=== PATIENT | female | born 1950 | race Caucasian/White ===

== ENCOUNTER 2016-11-18 12:07 | Inpatient (IN) | payer SELFPAY ==
[~2016-11-18] VITALS: Ht 157.5 cm; Wt 72.6 kg
[~2016-11-18 12:07] MED LIST: ASPI81CT27 PO; ATOR20TA40 PO; LISI10TA11 PO; METF1000 PO; METO25TA PO; OMEP20TC24 PO; VOL25 PO
[2016-11-18 12:13] VITALS: BP 150/70
--- NOTE | 2016-11-18 13:21 | NUR ---
66F BIB FAMILY C/O 07/23 "pressure" MIDSTERNAL CHEST PAIN THAT STARTED AT 0800 TODAY; PT STATED SHE WALKING AND THE CP BEGAN; PT STATES CP IS INTERMITTENT; DENIES N/V/D; SKIN IS PINK/WARM/DRY; Pupils equal and reactive to light bilaterally. No facial droop noted. No smile deficit noted. Speech normal for patient. Patient is alert and oriented to person, place, time and event. Bilateral hand plant and machinery valuer equal. Bilateral foot push equal. PT STATES SHE HAS NUMBNESS TO LEFT SIDE OF HER BODY; PATIENT SPEAKING IN COHERENT SETNENCES; LUNGS CLEAR BL; RR ARE EVEN AND UNLABORED; PT IS NS ON CM; VSS; PATIENT POSITIONED FOR COMFORT; HOB ELEVATED; BEDRAILS UP X2; BED DOWN; DAUGHTER BY BEDSIDE; MD SANTOS BY BEDSIDE EXAMINING PT; PROVIDED PT WITH WARM BLANKET; WILL CONTINUE TO MONITOR
--- NOTE | 2016-11-18 13:32 | NUR ---
PT TO CT VIA MARLYN ACCOMPANIED BY FOREST OFFICER
[2016-11-18] MEDS ORDERED: LORazepam 2 MG/ML VIAL IVP ONE (13:35)
[2016-11-18] MEDS ORDERED: NACL 0.9% 1,000 ML IV ONE (13:35)
--- NOTE | 2016-11-18 13:51 | NUR ---
pt returned from ct via gurney accompanied by resident in diagnostic radiology
[2016-11-18 14:12] LABS: BASOPHILS # (AUTO) 0.3 K/uL (0.00-0.22); EOSINOPHILS # (AUTO) 0.1 K/uL (0-0.4); HEMATOCRIT 42.8 % (36-48); HEMOGLOBIN 14.2 g/dL (12.0-16.0); MEAN CORPUSCULAR HEMOGLOBIN 31 pg (27-31); MEAN CORPUSCULAR HGB CONC 33 g/dL (33-37); MEAN CORPUSCULAR VOLUME 92 fL (80-94); MONOCYTES # (AUTO) 0.5 K/uL (0.8-1.0); NEUTROPHILS # (AUTO) 3.4 K/uL (1.8-7.7); PLATELET COUNT (AUTO) 250 K/uL (140-450); RED BLOOD CELL COUNT(AUTO) 4.66 MIL/uL (4.20-5.40); RED CELL DISTRIBUTION WIDTH 12.4 % (11.6-13.7); WHITE BLOOD COUNT (AUTO) 6.3 K/uL (4.8-10.8)
[2016-11-18 14:16] LABS: ANION GAP 11.8 (8-16); CARBON DIOXIDE 30.7 mmol/L (21-32); CREATININE 0.8 mg/dL (0.6-1.3); POTASSIUM 4.5 mmol/L (3.5-5.1)
[2016-11-18 14:24] LABS: ALBUMIN 3.5 g/dL (3.4-5.0); TOTAL BILIRUBIN 0.5 mg/dL (0.0-1.0)
[2016-11-18 14:25] LABS: PROTHROMBIN TIME 10.2 secs (10.8-13.4)
[2016-11-18] MEDS ORDERED: ASPIRIN 81 MG TAB.CHEW PO ONE (14:25)
[2016-11-18] MEDS ORDERED: MORPHINE SULFATE 2 MG/ML SYR IVP PRN (14:35)
[2016-11-18] MEDS ORDERED: ONDANSETRON 4 MG/2 ML VIAL IM/IVP PRN (14:35)
[2016-11-18] MEDS: NACL 0.9% 1,000 ML IV SCH ×2 (14:35→23:59)
[2016-11-18] MEDS ORDERED: DOCUSATE SODIUM 100 MG GELCAP PO PRN (14:35)
[2016-11-18] MEDS ORDERED: HYDROcodone/APAP 7.5/325 MG 1 TAB PO PRN (14:35)
[2016-11-18] MEDS ORDERED: ACETAMINOPHEN 325 MG TAB PO PRN (14:35)
--- NOTE | 2016-11-18 14:37 | NUR ---
Patient resting with eyes closed in [place]. Vital Signs within normal limits. Respirations even and unlabored.
[2016-11-18] MEDS ORDERED: DEXTROSE 50% 50 ML SYR IVP PRN (14:45)
--- NOTE | 2016-11-18 15:00 | NUR ---
PT DENIES ANY CP AT THIS TIME
--- NOTE | 2016-11-18 15:22 | NUR ---
Patient will be admitted to care of Elliott. Admited to Tele. Will go to room 119B. Belongings list completed. Report to Gerard DOCKERY.
[2016-11-18 15:27] LABS: FREE T4 (FREE THYROXINE) 1.13 ng/dL (0.76-1.46); MAGNESIUM 1.7 mg/dL (1.8-2.4); PHOSPHORUS 3.7 mg/dL (2.5-4.9)
--- NOTE | 2016-11-18 15:40 | NUR ---
ADMITTED FROM ER VIA GURNEY. AWAKE, ALERT, AND ORIENTED X4. SPEECH CLEAR. NO C/O PAIN. NO SOB, NOTED. SKIN INTACT. KEEP COMFORTABLE ON BED. PT. DAUGHTER -ALICIA GAVE PT. MEDICAL INFORMATION. EXPLAINED TO PT. AND PT. DAUGHTER -ALICIA ABOUT DIAGNOSIS, PLAN OF CARE, PAIN MANAGEMENT TEACHING, USE OF CALL LIGHT/BED/TV/BATHROOM. VERBALIZED UNDERSTANDING. CALL LIGHT WITHIN REACH
[2016-11-18 16:00] VITALS: BP 148/75
--- NOTE | 2016-11-18 16:00 | NUR ---
Patient's Plan of Care was discussed and reviewed with ROUTER MACHINE OPERATOR: MARISSA ONEAL
[2016-11-18] MEDS ORDERED: METOPROLOL 25 MG TAB PO SCH ×2 (16:35→17:45)
[2016-11-18] MEDS: BLOOD GLUCOSE MONITORING 1 DEV DEV FS SCH ×2 (16:43→21:51)
[2016-11-18] MEDS: INSULIN LISPRO SLIDING SCALE 100 UNITS/ML VIAL SUBQ PRN ×2 (16:46→21:52)
[2016-11-18] MEDS ORDERED: NITROGLYCERIN 0.4 MG TAB SL PRN (17:00)
[2016-11-18] MEDS ORDERED: ATORVASTATIN 20 MG TAB PO SCH (17:05)
[2016-11-18] MEDS ORDERED: MAGNESIUM OXIDE 400 MG TAB PO SCH (17:30)
[2016-11-18] MEDS ORDERED: CYCLOBENZAPRINE 10 MG TAB PO PRN (18:50)
--- NOTE | 2016-11-18 19:25 | NUR ---
BEDSIDE REPORT GIVEN TO HAKAN CHRISTINE -CHRISTIANA. IVF INFUSING WELL. IN STABLE CONDITION.
--- NOTE | 2016-11-18 19:26 | NUR ---
RECEIVED PT FROM KINDRA TOP TILE DECORATOR . PT FAROESE SPEAKER AAOX4 AMBULATES TO THE RESTROOM WITH OFFICE SERVICE COORDINATOR, DENIES ANY CHEST PAIN AT THIS TIME, ON TELEMETRY SR, IV ON RT AC INFUSING WELL RELATIVES AT BED SIDE INITIAL ASSESSMENT DONE
[2016-11-18 20:00] VITALS: BP 141/78
[2016-11-18] MEDS: LISINOPRIL 20 MG TAB PO SCH (20:38)
[2016-11-18 20:56] LABS: APPEARANCE,URINE CLEAR (CLEAR); BILIRUBIN,URINE NEGATIVE (NEGATIVE); BLOOD, URINE NEGATIVE (NEGATIVE); COLOR,URINE YELLOW (YELLOW); LEUKOCYTE ESTERASE ,URINE NEGATIVE (NEGATIVE); NITRITE, URINE NEGATIVE (NEGATIVE); UGLUCOSE 3+ (NEGATIVE)
[2016-11-18 21:03] LABS: RBC,URINE 0-5 (RARE) /HPF (0-5); WBC,URINE 0-5 (RARE) /HPF (0-5)
[2016-11-18] MEDS: metFORMIN 500 MG TAB PO SCH (21:54)
--- NOTE | 2016-11-18 22:00 | NUR ---
BLOOD SUGAR TEST 152 COVERAGE WITH 2 UNITS SUBQ HUMALOG ORDER AND HS SNACK IS GIVEN
--- NOTE | 2016-11-19 01:00 | NUR ---
PT REMAIN STABLE NOT CHEST PAIN NOTED ON TELEMETRY SR, IV ON RT AC INFUSING WELL
[2016-11-19 01:25] VITALS: BP 107/61
[2016-11-19 04:00] VITALS: BP 137/73
--- NOTE | 2016-11-19 04:00 | NUR ---
SPONGE BATHGIVEN , LINEN CHANGED NOT DISTRESS NOTED DENIES ANY PAIN
[2016-11-19 05:52] LABS: BASOPHILS # (AUTO) 0.1 K/uL (0.00-0.22); BASOPHILS % (AUTO) 2.1 % (0.0-2.0); EOSINOPHILS # (AUTO) 0.2 K/uL (0-0.4); EOSINOPHILS % (AUTO) 3.3 % (0.0-4.0); HEMATOCRIT 39.5 % (36-48); HEMOGLOBIN 13.2 g/dL (12.0-16.0); LYMPHOCYTES # (AUTO) 2.6 K/uL (2.5-16.5); LYMPHOCYTES % (AUTO) 37.5 % (20.5-51.1); MEAN CORPUSCULAR HEMOGLOBIN 31 pg (27-31); MEAN CORPUSCULAR HGB CONC 33 g/dL (33-37); MEAN CORPUSCULAR VOLUME 92 fL (80-94); MONOCYTES # (AUTO) 0.5 K/uL (0.8-1.0); MONOCYTES % (AUTO) 7.3 % (1.7-9.3); NEUTROPHILS # (AUTO) 3.5 K/uL (1.8-7.7); NEUTROPHILS % (AUTO) 49.8 % (42.2-75.2); PLATELET COUNT (AUTO) 235 K/uL (140-450); RED BLOOD CELL COUNT(AUTO) 4.28 MIL/uL (4.20-5.40); WHITE BLOOD COUNT (AUTO) 6.9 K/uL (4.8-10.8)
[2016-11-19 06:32] LABS: ANION GAP 9.5 (8-16); CARBON DIOXIDE 30.9 mmol/L (21-32); CREATININE 0.9 mg/dL (0.6-1.3); POTASSIUM 4.4 mmol/L (3.5-5.1)
[2016-11-19] MEDS: BLOOD GLUCOSE MONITORING 1 DEV DEV FS SCH ×2 (06:34→11:58)
[2016-11-19] MEDS: INSULIN LISPRO SLIDING SCALE 100 UNITS/ML VIAL SUBQ PRN ×2 (06:35→12:00)
--- NOTE | 2016-11-19 06:44 | NUR ---
BLOODSUGAR TEST 216 COVERAGE WITH4 UNITS SUBQ HUMALOG ON LEFT ARM
--- NOTE | 2016-11-19 07:20 | NUR ---
RECEIVED PATIENT REPORT AT BEDSIDE FROM EVENING NURSE. PATIENT IS AWAKE, ALERT AND ORIENTED. NO SIGNS AND SYMPTOMS OF DISTRESS NOTED. IV SITE NOTED AT RIGHT AC, IVF INFUSING WELL. BED IN LOWEST POSITION, SIDE RAILS UP AND CALL LIGHT WITHIN REACH. WILL CONTINUE TO MONITOR.
[2016-11-19 08:00] VITALS: BP 130/75
--- NOTE | 2016-11-19 08:38 | NUR ---
PATIENT HAS BEEN SCREENED AND CATEGORIZED HIGH NUTRITION RISK. PATIENT WILL BE SEEN WITHIN 1-2 DAYS OF ADMISSION. 11/19/16-11/20/[address]
[2016-11-19] MEDS: metFORMIN 500 MG TAB PO SCH (08:39)
[2016-11-19] MEDS: LISINOPRIL 20 MG TAB PO SCH (08:40)
[2016-11-19] MEDS ORDERED: METOPROLOL SUCCINATE 50 MG TABER PO SCH (09:00)
[2016-11-19] MEDS ORDERED: ASPIRIN 81 MG TAB.CHEW PO SCH (09:00)
[2016-11-19] MEDS ORDERED: METOPROLOL 25 MG TAB PO SCH (09:00)
[2016-11-19] MEDS ORDERED: ATORVASTATIN 20 MG TAB PO SCH (09:00)
[2016-11-19] MEDS ORDERED: MAG SULF 2000 MG/WATER PREMIX 50 ML IV SCH (09:30)
--- NOTE | 2016-11-19 11:55 | NUR ---
PATIENT SEEN BY PHYSICAL THERAPIST
[2016-11-19 12:00] VITALS: BP 129/72
[2016-11-19] MEDS ORDERED: CYCL10TA40 PO (12:11)
--- NOTE | 2016-11-19 13:50 | NUR ---
CALLED PATIENT'S GRANDDAUGHTER, MARTHA, AND NOTIFIED HER OF PATIENT'S DISCHARGE ORDERS.
[2016-11-19] MEDS ORDERED: GLIP10TA3 PO (14:16)
--- NOTE | 2016-11-19 14:30 | NUR ---
PATIENT IS DISCHARGED TO HOME. PATIENT'S GRANDDAUGHTER, MARTHA, WAS PRESENT. DISCHARGE INSTRUCTIONS AND PRESCRIPTIONS GIVEN AND SIGNED BY PATIENT. PATIENT VERBALIZED UNDERSTANDING. IV SITE DISCONTINUED. TELE LEADS TAKEN OFF. PATIENT LEFT WITH ALL THEIR BELONGINGS. PATIENT IS IN STABLE CONDITION.
== END 2016-11-19 14:30 | disposition home or self-care (01) | DRG 206 ==
LOC: MED 12:07 → MTU 14:35
PROVIDERS: ADMIT Family Medicine; ATTEND Family Medicine
DX: M94.0 Chondrocostal junction syndrome [Tietze] (principal); E11.65 Type 2 diabetes mellitus with hyperglycemia; I10 Essential (primary) hypertension; G90.9 Disorder of the autonomic nervous system, unspecified; E83.42 Hypomagnesemia; Z88.6 Allergy status to analgesic agent
CPT/HCPCS: 36415; 70450; 71010; 72110; 80048; 80053; 81001; 82150; 82948; 83690; 83735; 83880; 84100; 84439; 84479; 84484; 85025; 85610; 85730; 87081; 93005; 93880; 96361; 96374; 97116; 97140; 99285; J1815; J2060; J3475; J7030; Q0092

== ENCOUNTER 2018-09-19 13:40 | Emergency (ER) | payer OTHER ==
[~2018-09-19] VITALS: Ht 157.5 cm; Wt 73.5 kg
[~2018-09-19 13:40] MED LIST changes: -ASPI81CT27 PO; +ASPI81CT95 PO; +CYCL10TA14 PO; +GLIP10TA3 PO; +OMEP20TC12 PO; -OMEP20TC24 PO
[2018-09-19 13:43] VITALS: BP 129/76
--- NOTE | 2018-09-19 13:53 | NUR ---
PT AMBULATED TO ER BED 9
[2018-09-19] MEDS ORDERED: NACL 0.9% 1,000 ML IV SCH (14:02)
[2018-09-19] MEDS ORDERED: ONDANSETRON 4 MG/2 ML VIAL IVP ONE (14:05)
--- NOTE | 2018-09-19 14:21 | NUR ---
PT TO CT SCAN VIA WHEELCHAIR
--- NOTE | 2018-09-19 14:29 | NUR ---
PT RETURNED FROM CT SCAN VIA WHEELCHAIR, SITTING IN BED POSITIONED TO COMFORT.
[2018-09-19 14:33] LABS: BASOPHILS % (AUTO) 0.2 % (0.0-2.0); EOSINOPHILS % (AUTO) 0.2 % (0.0-4.0); HEMATOCRIT 45.8 % (36-48); HEMOGLOBIN 15.4 g/dL (12.0-16.0); LYMPHOCYTES # (AUTO) 0.4 K/uL (2.5-16.5); LYMPHOCYTES % (AUTO) 3.5 % (20.5-51.1); MEAN CORPUSCULAR HEMOGLOBIN 31 pg (27-31); MEAN CORPUSCULAR HGB CONC 34 g/dL (33-37); MEAN CORPUSCULAR VOLUME 91.6 fL (80-94); MONOCYTES # (AUTO) 0.4 K/uL (0.8-1.0); MONOCYTES % (AUTO) 3.5 % (1.7-9.3); NEUTROPHILS # (AUTO) 9.8 K/uL (1.8-7.7); NEUTROPHILS % (AUTO) 92.6 % (42.2-75.2); PLATELET COUNT (AUTO) 247 K/uL (140-450); RED CELL DISTRIBUTION WIDTH 13.2 % (11.6-13.7); WHITE BLOOD COUNT (AUTO) 10.6 K/uL (4.8-10.8)
[2018-09-19 14:36] LABS: ANION GAP 17.1 (8-16); CARBON DIOXIDE 25.1 mmol/L (21-32); CREATININE 1.3 mg/dL (0.6-1.3); POTASSIUM 4.2 mmol/L (3.5-5.1)
[2018-09-19 14:41] LABS: ALBUMIN 3.4 g/dL (3.4-5.0); TOTAL BILIRUBIN 0.6 mg/dL (0.0-1.0)
[2018-09-19] MEDS ORDERED: NACL 0.9% 1,000 ML IV ONE (15:35)
--- NOTE | 2018-09-19 15:43 | NUR ---
DR. CADE EVALUATING PT
[2018-09-19] MEDS ORDERED: LIDOCAINE VISCOUS 2% 20 ML UDC PO ONE (15:50)
[2018-09-19] MEDS ORDERED: FAMOTIDINE 20 MG/2 ML VIAL IVP ONE (15:50)
[2018-09-19] MEDS ORDERED: ALUMINUM HYD/MAG/SIMETHICONE 30 ML UDC PO ONE (15:50)
[2018-09-19] MEDS ORDERED: HYDROcodone/APAP 5/325 MG 1 TAB TAB PO ONE (15:50)
--- NOTE | 2018-09-19 16:00 | NUR ---
PT AMBULATED TO RESTROOM WITH ASSISTANCE FROM HER DAUGHTER
[2018-09-19 16:10] LABS: APPEARANCE,URINE CLEAR (CLEAR); BILIRUBIN,URINE NEGATIVE (NEGATIVE); BLOOD, URINE TRACE-L (NEGATIVE); COLOR,URINE YELLOW (YELLOW); LEUKOCYTE ESTERASE ,URINE NEGATIVE (NEGATIVE); NITRITE, URINE NEGATIVE (NEGATIVE); PH,URINE 5.5 (5.0-9.0); UGLUCOSE 3+ (NEGATIVE)
[2018-09-19 16:13] LABS: RBC,URINE 0-5 /HPF (0-5); WBC,URINE 0-5 /HPF (0-5)
--- NOTE | 2018-09-19 16:30 | NUR ---
DR. CADE RE-EVALUATING PT
[2018-09-19 16:44] VITALS: BP 141/60
--- NOTE | 2018-09-19 16:45 | NUR ---
Patient discharged with v/s stable. Written and verbal after care instructions given and explained. Patient alert, oriented and verbalized understanding of instructions. Ambulatory with steady gait. All questions addressed prior to discharge. ID band removed. Patient advised to follow up with PMD. Rx of PEPCID, ZOFRAN, CIPROFLOXACIN given. Patient educated on indication of medication including possible reaction and side effects. Opportunity to ask questions provided and answered.
== END 2018-09-19 16:45 | disposition home or self-care (01) ==
LOC: MED 13:40
DX: K52.9 Noninfective gastroenteritis and colitis, unspecified (principal); E87.1 Hypo-osmolality and hyponatremia; E87.8 Other disorders of electrolyte and fluid balance, not elsewhere classified; E11.9 Type 2 diabetes mellitus without complications; I10 Essential (primary) hypertension; Z98.890 Other specified postprocedural states; Z79.84 Long term (current) use of oral hypoglycemic drugs; Z79.899 Other long term (current) drug therapy; Z88.5 Allergy status to narcotic agent
CPT/HCPCS: 36415; 74176; 80053; 81001; 82948; 83690; 84484; 85025; 93005; 96361; 96374; 96375; 99284; J2405; J3490; J7030; 81002

== ENCOUNTER 2019-02-18 04:02 | Inpatient (IN) | payer OTHER ==
[2019-02-18] MEDS ORDERED: fentaNYL 0.05 MG/ML VIAL ONE (06:06)
[2019-02-18] MEDS ORDERED: PANTOPRAZOLE 40 MG INJ VIAL ONE (12:55)
[2019-02-18] MEDS ORDERED: NITROGLYCERIN 0.4 MG TAB SL ONE (12:56)
[2019-02-18] MEDS ORDERED: ENOXAPARIN 40 MG/0.4 ML SYR SUBQ ONE (12:58)
[2019-02-20 20:06] LABS: ANION GAP 13.8 (8-16); CHLORIDE 100 mmol/L (98-107); CREATININE 1.4 mg/dL (0.6-1.3); GFR ARICAN-AMERICAN 48 mL/min (>90); GLUCOSE 226 mg/dL (74-106); POTASSIUM 4.8 mmol/L (3.5-5.1); SODIUM SERUM 135 mmol/L (136-145); TOTAL BILIRUBIN 0.3 mg/dL (0.0-1.0); UREA NITROGEN, BLOOD 20 mg/dL (7-18)
[2019-02-20 20:07] LABS: ALBUMIN 3.5 g/dL (3.4-5.0); ASPARTATE AMINOTRANSFERASE 17 U/L (15-37)
[2019-02-20 20:25] LABS: HEMATOCRIT 42.4 % (36-48); HEMOGLOBIN 14.2 g/dL (12.0-16.0); MEAN CORPUSCULAR HEMOGLOBIN 31 pg (27-31); MEAN CORPUSCULAR VOLUME 91.6 fL (80-94); RED BLOOD CELL COUNT(AUTO) 4.63 MIL/uL (4.20-5.40); WHITE BLOOD COUNT (AUTO) 7.2 K/uL (4.8-10.8)
[2019-02-20 20:26] LABS: BASOPHILS # (AUTO) 0.1 K/uL (0.00-0.22); BASOPHILS % (AUTO) 0.9 % (0.0-2.0); EOSINOPHILS # (AUTO) 0.1 K/uL (0-0.4); EOSINOPHILS % (AUTO) 1.8 % (0.0-4.0); LYMPHOCYTES # (AUTO) 2.9 K/uL (2.5-16.5); LYMPHOCYTES % (AUTO) 40.9 % (20.5-51.1); MEAN CORPUSCULAR HGB CONC 33 g/dL (33-37); MONOCYTES # (AUTO) 0.5 K/uL (0.8-1.0); MONOCYTES % (AUTO) 7.4 % (1.7-9.3); NEUTROPHILS # (AUTO) 3.5 K/uL (1.8-7.7); PLATELET COUNT (AUTO) 306 K/uL (140-450); RED CELL DISTRIBUTION WIDTH 13.7 % (11.6-13.7)
== END 2019-02-18 16:00 | disposition home or self-care (01) | DRG 313 ==
LOC: MED 04:02 → MMU 05:51
PROVIDERS: ADMIT Internal Medicine Pulmonary Disease; ATTEND Internal Medicine Pulmonary Disease
DX: R07.89 Other chest pain (principal); E11.9 Type 2 diabetes mellitus without complications; I10 Essential (primary) hypertension; R09.02 Hypoxemia; R06.03 Acute respiratory distress; E78.5 Hyperlipidemia, unspecified; Z88.5 Allergy status to narcotic agent
CPT/HCPCS: 36415; 80053; 82948; 84484; 85025; 87081; 93005; 96374; 99285; C9113; J1650; J3010

== ENCOUNTER 2021-07-16 10:33 | Emergency (ER) | payer OTHER ==
[~2021-07-16] VITALS: Ht 157.5 cm; Wt 65.3 kg
[~2021-07-16 10:33] MED LIST changes: +CYCL-657 PO; -CYCL10TA14 PO; +LISI-486 PO; -LISI10TA11 PO; +METF-1061 PO; -METF1000 PO; +OMEP-278 PO; -OMEP20TC12 PO
--- NOTE | 2021-07-16 10:55 | NUR ---
Patient ambulated with steady gait to bed 5.
[2021-07-16 10:56] VITALS: BP 186/86
--- NOTE | 2021-07-16 11:19 | NUR ---
71 Y/O FEMALE C/O HEADACHE SENT FROM URGENT CARE FOR HIGH BP READING. PATIENT BP 186/86 AT TRIAGE. PATIENTS BP AT BEDSIDE IS 157/65. PATIENT IS S/P TAKING RX IN AM AT HOME AND IN CLINIC GIVEN ADDITIONAL RX NO RELIEF. DENIES FEVER OR CHILLS. DENIES NAUSEA, VOMITING OR DIARRHEA. PATIENT IS COMPLAINING OF POUNDING IN HER EARS AND HEAD BUT NO PAIN. BLOOD SUGAR 243. MEDICAL HISTORY: HTN, DM ALLERGIES: MORPHINE
--- NOTE | 2021-07-16 11:20 | NUR ---
Chart checked and completed. The patient's care was reviewed and supervised by Andria Diez RN.
[2021-07-16] MEDS ORDERED: HYDROcodone/APAP 5/325 MG 1 TAB TAB PO ONE (12:10)
[2021-07-16] MEDS ORDERED: KETOROLAC 30 MG/ML VIAL IM ONE (12:10)
--- NOTE | 2021-07-16 12:16 | NUR ---
PATIENT WAS TAKEN TO IMAGING VIA [facility]
[2021-07-16] MEDS ORDERED: NAPR-1704 PO (13:53)
[2021-07-16] MEDS ORDERED: ACET-8386 PO (13:53)
[2021-07-16 14:25] VITALS: BP 126/59
--- NOTE | 2021-07-16 14:25 | NUR ---
Patient discharged with v/s stable. Written and verbal after care instructions given. Patient alert, oriented and verbalized understanding of instructions. Ambulatory with steady gait. All questions addressed prior to discharge. ID band removed. Patient advised to follow up with PMD. Rx of NAPROXEN AND HYDROCODONE/ACETAMINOPHEN given. Opportunity to ask questions provided and answered.
--- NOTE | 2021-07-16 14:56 | NUR ---
The patient's care was reviewed and supervised by Sol Salter RN.
== END 2021-07-16 14:25 | disposition home or self-care (01) ==
LOC: MED 10:33
DX: S16.1XXA Strain of muscle, fascia and tendon at neck level, initial encounter (principal); S29.012A Strain of muscle and tendon of back wall of thorax, initial encounter; E04.1 Nontoxic single thyroid nodule; E27.8 Other specified disorders of adrenal gland; M50.33 Other cervical disc degeneration, cervicothoracic region; M25.551 Pain in right hip; E11.9 Type 2 diabetes mellitus without complications; I10 Essential (primary) hypertension; Z98.890 Other specified postprocedural states; Z79.899 Other long term (current) drug therapy; Z79.1 Long term (current) use of non-steroidal anti-inflammatories (NSAID); Z79.891 Long term (current) use of opiate analgesic; Z79.82 Long term (current) use of aspirin; Z88.5 Allergy status to narcotic agent; W01.0XXA Fall on same level from slipping, tripping and stumbling without subsequent striking against object, initial encounter; Y92.89 Other specified places as the place of occurrence of the external cause; Y93.89 Activity, other specified; Y99.8 Other external cause status
CPT/HCPCS: 72125; 72128; 82948; 96372; 99284; J1885

== ENCOUNTER 2021-07-23 12:41 | Inpatient (IN) | payer OTHER ==
[~2021-07-23] VITALS: Ht 157.5 cm; Wt 70.8 kg
[~2021-07-23 12:41] MED LIST changes: +ACET-8386 PO; -METF-1061 PO; +METF-1274 PO; +NAPR-1704 PO
[2021-07-23 12:51] VITALS: BP 120/67
--- NOTE | 2021-07-23 13:04 | NUR ---
PT W/C ASSISTED TO ER BED 12.
--- NOTE | 2021-07-23 13:08 | NUR ---
71 Y/O FEMALE BIB DAUGHTER C/O WEAKNESS X TODAY. BP 120/67, BLOOD SUGAR 411 AT THIS TIME. PT REFERRED FROM CLINIC FOR HYPERTENSIVE CRISIS 214/101, 207/95 & GOT CLONIDINE 0.2 MG AT CLINIC. DENIES FEVER/CHILLS. DENIES N/V. PMH: DM, HTN, RA ALLERGIES: MORPHINE
--- NOTE | 2021-07-23 13:09 | NUR ---
DR. KOWALSKI AT PT BEDSIDE FOR FURTHER EVALUATION.
--- NOTE | 2021-07-23 13:12 | NUR ---
IV ESTABLISHED TO RIGHT AC 18G, GOOD BLOOD RETURN, COLLECTED BLOOD. COLLECTED LINCOLN CRAMER WALKED TO LAB.
--- NOTE | 2021-07-23 13:19 | NUR ---
XRAY AT BEDSIDE
--- NOTE | 2021-07-23 13:31 | NUR ---
BLOOD AND LEIGH COLLECTED AND WALKED TO LAB.
[2021-07-23] MEDS ORDERED: ASPIRIN 81 MG TAB.CHEW PO ONE (13:40)
[2021-07-23] MEDS ORDERED: NACL 0.9% 1,000 ML IV ONE (13:40)
[2021-07-23 13:46] LABS: BASOPHILS # (AUTO) 0.1 K/uL (0.00-0.22); BASOPHILS % (AUTO) 1.1 % (0.0-2.0); EOSINOPHILS # (AUTO) 0.5 K/uL (0-0.4); EOSINOPHILS % (AUTO) 6.6 % (0.0-4.0); HEMATOCRIT 37.8 % (36-48); HEMOGLOBIN 12.9 g/dL (12.0-16.0); LYMPHOCYTES # (AUTO) 1.3 K/uL (2.5-16.5); LYMPHOCYTES % (AUTO) 16.9 % (20.5-51.1); MEAN CORPUSCULAR HEMOGLOBIN 31 pg (27-31); MEAN CORPUSCULAR HGB CONC 34 g/dL (33-37); MONOCYTES # (AUTO) 0.3 K/uL (0.8-1.0); MONOCYTES % (AUTO) 4.1 % (1.7-9.3); NEUTROPHILS # (AUTO) 5.5 K/uL (1.8-7.7); NEUTROPHILS % (AUTO) 71.3 % (42.2-75.2); PLATELET COUNT (AUTO) 273 K/uL (140-450); RED BLOOD CELL COUNT(AUTO) 4.15 MIL/uL (4.20-5.40); RED CELL DISTRIBUTION WIDTH 12.8 % (11.6-13.7); WHITE BLOOD COUNT (AUTO) 7.7 K/uL (4.8-10.8)
[2021-07-23 14:07] LABS: ANION GAP 10.5 (8-16); CARBON DIOXIDE 30.5 mmol/L (21-32); TOTAL BILIRUBIN 0.4 mg/dL (0.0-1.0)
--- NOTE | 2021-07-23 15:05 | NUR ---
PT SLEEPING IN BED, VSS, WILL CONTINUE TO MONITOR.
[2021-07-23 16:09] LABS: APPEARANCE,URINE CLEAR (CLEAR); BILIRUBIN,URINE NEGATIVE (NEGATIVE); BLOOD, URINE NEGATIVE (NEGATIVE); LEUKOCYTE ESTERASE ,URINE NEGATIVE (NEGATIVE); NITRITE, URINE NEGATIVE (NEGATIVE); PH,URINE 6.5 (5.0-9.0); UGLUCOSE 3+ (NEGATIVE)
[2021-07-23 16:10] LABS: COLOR,URINE STRAW (YELLOW)
--- NOTE | 2021-07-23 17:40 | NUR ---
PT BP 207/50 AND BLOOD SUGAR 261. ERMD MADE AWARE. WILL CONTINUE TO ASSESS.
[2021-07-23] MEDS ORDERED: hydrALAZINE 20 MG/ML VIAL IM ONE (18:15)
[2021-07-23] MEDS ORDERED: ONDANSETRON 4 MG/2 ML VIAL IVP PRN (18:45)
[2021-07-23] MEDS ORDERED: ACETAMINOPHEN 325 MG TAB PO PRN (18:45)
[2021-07-23] MEDS ORDERED: POTASSIUM CHLORIDE 10 MEQ TABER PO PRN (18:45)
[2021-07-23] MEDS ORDERED: MAG SULF 2000 MG/WATER PREMIX 50 ML IV PRN (18:45)
[2021-07-23] MEDS ORDERED: KCL 20 MEQ/WATER INJ PREMIX 200 ML IV PRN (18:45)
--- NOTE | 2021-07-23 18:57 | NUR ---
Patient will be admitted to care of DR. HARRIS. Admited to TELE. Will go to room 110A. Belongings list completed. Report to CHRISTIANA BUI.
[2021-07-23] MEDS ORDERED: DEXTROSE 50% 50 ML SYR IVP PRN (19:00)
--- NOTE | 2021-07-23 19:01 | NUR ---
PT ARRIVED TO UNIT VIA GURNEY AND AMBULATED TO BED. PT IS AWAKE AND ALERT. A&OX4. ON RA WITH BREATHING UNLABORED. AMBULATORY INDEPENDENTLY. PT CURRENTLY AMBULATING TO RESTROOM WITH STEADY GAIT. SKIN IS WARM, DRY, AND INTACT. DENIES PAIN. NO DISTRESS NOTED. PT STABLE.
--- NOTE | 2021-07-23 19:02 | NUR ---
PT IS STABLE. WILL ENDORSE TO LICENSING COURT MAGISTRATE NURSE FOR CONTINUITY OF CARE.
--- NOTE | 2021-07-23 19:30 | NUR ---
RECEIVED REPORT FROM RAMYA RN DAYSHIFT NURSE AT BEDSIDE FOR CONTINUITY OF CARE, PT SITTING UP IN BED SHE IS AOX4 AND FINNISH SPEAKING FAMILY AT BEDSIDE. PT HAS A RAC 18 GUAGE WHICH IS SALINE LOCKED AT THIS TIME.
[2021-07-23 20:00] VITALS: BP 134/68
[2021-07-23] MEDS: ATORVASTATIN 20 MG TAB PO SCH (20:19)
[2021-07-23] MEDS ORDERED: CRUSHER, PILL MC ONE (20:21)
[2021-07-23] MEDS: HYDROcodone/APAP 5/325 MG 1 TAB TAB PO PRN (20:24)
[2021-07-23] MEDS: METOPROLOL 25 MG TAB PO SCH (20:24)
--- NOTE | 2021-07-23 20:30 | NUR ---
MRSA SWAB TO NARES AND ADMISSION V/S FOLLOWS: T 98.0 P 66 R 18 B/P 134/68 02 98%. PT GIVEN ORDERED MEDICATIONS OF LIPITOR AND LOPRESSOR. EXPLAINED PURPOSE AND SIDE EFFECTS OF MEDICATIONS AT BEDSIDE, REINFORCEMENT NEEDED, HOWEVER, PT VERBALIZED UNDERSTANDING. PT ALSO C/O OF PAIN ON HER LEFT SIDE 08/23., SHE WAS GIVEN PO/PRN NORCO FOR MODERATE PAIN, WILL MONITOR FOR PAIN RELIEF. PT ABLE TO AMBULATE TO TOILET WITH STAND BY ASSISTANCE. NORMAL SALINE HUNG AND RUNNING AT 80 MLS/HR ORDERED. ALL ORDERED PRECAUTIONS IN PLACE.
[2021-07-23] MEDS: INSULIN LISPRO SLIDING SCALE 100 UNITS/ML VIAL SUBQ PRN (20:31)
[2021-07-23] MEDS: BLOOD GLUCOSE MONITORING 1 DEV DEV FS SCH (20:47)
[2021-07-23] MEDS: NACL 0.9% 1,000 ML IV SCH (20:47)
--- NOTE | 2021-07-23 22:30 | NUR ---
PT IN BED ASLEEP NO S/S OF PAIN OR DISTRESS NOTED. IV SITE INTACT AND NORMAL SALINE CONTINUES AT 80MLS/HR ORDERED.
--- NOTE | 2021-07-24 | NUR ---
ROUNDS DONE, PT IN BED ASLEEP, BUT AROUSABLE TO NAME AND LIGHT TOUCH V/S FOLLOWS: T 98.1 P 72 R 18 B/P 125/72 02 98% ON ROOM AIR. ALL FALLS PRECAUTIONS IN PLACE.
[2021-07-24 04:00] VITALS: BP 125/70
--- NOTE | 2021-07-24 04:30 | NUR ---
PT ASSISTED TO TOILET WITH STAND BY ASSISTANCE. PT C/O OF HEADACHE. IV SITE INTACT AND FLUIDS RUNNING ORDERED.
[2021-07-24] MEDS: HYDROcodone/APAP 5/325 MG 1 TAB TAB PO PRN ×3 (05:15→22:04)
--- NOTE | 2021-07-24 05:19 | NUR ---
PT THANIA GUPTA FOR HEADACHE WELL REQUESTED BLANKETS. ALL ORDERED PRECAUTIONS IN PLACE.
[2021-07-24] MEDS: INSULIN LISPRO SLIDING SCALE 100 UNITS/ML VIAL SUBQ PRN ×4 (06:36→20:51)
[2021-07-24] MEDS: BLOOD GLUCOSE MONITORING 1 DEV DEV FS SCH ×4 (06:38→20:51)
--- NOTE | 2021-07-24 06:42 | NUR ---
PT FINGERSTICK IS 209 SHE WAS GIVEN 4 UNITS OF HUMALOG COVERAGE.
[2021-07-24 06:48] LABS: BASOPHILS # (AUTO) 0.1 K/uL (0.00-0.22); BASOPHILS % (AUTO) 1.2 % (0.0-2.0); EOSINOPHILS # (AUTO) 0.6 K/uL (0-0.4); EOSINOPHILS % (AUTO) 10.2 % (0.0-4.0); HEMATOCRIT 37.9 % (36-48); HEMOGLOBIN 12.8 g/dL (12.0-16.0); LYMPHOCYTES % (AUTO) 33.2 % (20.5-51.1); MEAN CORPUSCULAR HEMOGLOBIN 31 pg (27-31); MEAN CORPUSCULAR HGB CONC 34 g/dL (33-37); MEAN CORPUSCULAR VOLUME 90.9 fL (80-94); MONOCYTES # (AUTO) 0.4 K/uL (0.8-1.0); MONOCYTES % (AUTO) 6.7 % (1.7-9.3); NEUTROPHILS # (AUTO) 2.9 K/uL (1.8-7.7); NEUTROPHILS % (AUTO) 48.7 % (42.2-75.2); PLATELET COUNT (AUTO) 264 K/uL (140-450); RED BLOOD CELL COUNT(AUTO) 4.17 MIL/uL (4.20-5.40); RED CELL DISTRIBUTION WIDTH 13.2 % (11.6-13.7); WHITE BLOOD COUNT (AUTO) 5.9 K/uL (4.8-10.8)
[2021-07-24 07:11] LABS: ALBUMIN 2.9 g/dL (3.4-5.0); ANION GAP 8.8 (8-16); CARBON DIOXIDE 30.5 mmol/L (21-32); CHOL/HDL RATIO 3.4 (1-4.5); MAGNESIUM 1.6 mg/dL (1.8-2.4); POTASSIUM 4.3 mmol/L (3.5-5.1); TOTAL BILIRUBIN 0.5 mg/dL (0.0-1.0)
--- NOTE | 2021-07-24 07:15 | NUR ---
RECEIVED PT FROM ENTRY LEVEL ELECTRICIAN NURSE FOR CONTINUITY OF CARE. PT LYING IN BED, AWAKE. RESPIRATIONS EVEN AND UNLABORED AT ROOM AIR. NO DISTRESS NOTED. NO COMPLAINTS OF PAIN. PT ON LEAD INSTRUCTOR/FLIGHT ATTENDANT. PT IS A&O4, PERSIAN SPEAKER. IV SITE AT [facility] G18 INFUSING NS AT 80ML/HR. SKIN IS INTACT, DRY AND WARM TO TOUCH. SAFETY MEASURES IN PLACE. CALL LIGHT WITHIN REACH. WILL CONTINUE TO MONITOR.
[2021-07-24] MEDS: NACL 0.9% 1,000 ML IV SCH ×2 (07:43→20:50)
[2021-07-24 08:00] VITALS: BP 126/62
[2021-07-24] MEDS: ASPIRIN 81 MG TAB.CHEW PO SCH (08:48)
[2021-07-24] MEDS: METOPROLOL 25 MG TAB PO SCH ×2 (08:48→20:45)
[2021-07-24] MEDS: DOCUSATE SODIUM 100 MG GELCAP PO SCH (08:49)
[2021-07-24] MEDS: MAGNESIUM OXIDE 400 MG TAB PO PRN (08:49)
[2021-07-24] MEDS: lisinopriL 10 MG TAB PO SCH (08:49)
--- NOTE | 2021-07-24 09:10 | NUR ---
ADMINISTERED SCHEDULED MORNING MEDS. GAVE PRN MG OX FOR MG 1.6. EXPLAINED MEDS TO PT. PT VERBALIZED UNDERSTANDING. PT TOLERATED WELL.
--- NOTE | 2021-07-24 11:14 | NUR ---
DC PLANNING: RECEIVED A CALL FROM [employer] MANA[employer]ED ([facility]) [phone] SPOKE WITH ABRAHAM VÁSQUEZ ,UPDATED PT'S CLINICAL AND REQUESTED THE CLINICALS TO BE FAXED TO [phone]. FAXED ALL CLINICALS. AND ABRAHAM PROVIDE THE AUTH # [id number] FOR HOSPITAL STAY.
[2021-07-24 12:00] VITALS: BP 169/73
--- NOTE | 2021-07-24 12:10 | NUR ---
BS CHECK DONE. BS 182. ADMINISTERED SLIDING INSULIN ORDERED. PT TOLERATED WELL.
--- NOTE | 2021-07-24 13:40 | NUR ---
PT'S BP AT 160'S. INFORMED DR CORTEZ. ORDERED IVP HYDRALAZINE.
[2021-07-24] MEDS: hydrALAZINE 20 MG/ML VIAL IVP PRN ×2 (13:58→20:46)
--- NOTE | 2021-07-24 13:58 | NUR ---
PRN HYDRALAZINE GIVEN AT THIS TIME. WILL CONTINUE TO MONITOR.
--- NOTE | 2021-07-24 14:00 | NUR ---
DC PLANNING PATIENT IS A 71-YEAR OLD FEMALE ADMITTED IN THE [facility]/ED ON 07/24/2021 DUE TO COMPLAINTS OF HYPERTENSION GENERALIZED WEAKNESS AND SOME DIZZINESS AND LIGHTHEADEDNESS. PATIENT HAS MEDICAL HISTORY OF DIABETES MELLITUS (PATIENT IS TURKISH SPEAKING ONLY). ANGELIQUE MET WITH PATIENT AND HER AT BEDSIDE TO DISCUSS AND GATHER HER COLLATERAL INFORMATION. PATIENT REPORTED LIVING AT HOME WITH HER , DAUGHTERS,AND GRANDDAUGHTER. PATIENT STATED THAT HER DAUGHTER PRERNA HARRIS IS HER EMERGENCY CONTACT AND MEDICAL DECISION MAKER. PATIENT REPORTED THAT HER DAUGHTERS PRERNA AND ALICIA MAGUIRE ARE HER POWER OF HOME CARE MUSIC THERAPIST AND HAS NO INTEREST ON A.D. INFORMATION FORMS PROVIDED BY ANGELIQUE. PATIENT REPORTED NOT HAVING ANY ISSUES GETTING OR TAKING HER MEDICATIONS FROM THE [facility] NEAR HER HOME IN [place] IN [facility]. PATIENT STATED NOT HAVING OR NEEDING DME AT HOME AND BEEN ACTIVE AND INDEPENDENT TO AMBULATE. PATIENT REPORTED GOING TO A CLINIC IN [place] IN [facility] AND SEEING DOCTOR THERE WHEN SHE NEEDS TO SEE AN MD. 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 ANGELIQUE INFORMED PATIENT OF THE IMPORTANCE OF MAKING A FOLLOW UP APPOINTMENT AFTER SHE IS DC FROM [facility]. PATIENT AGREED AND STATED THAT HER DAUGHTER WILL BE MAKING HER APPOINTMENT FOR HER. ANGELIQUE THANK HER FOR HER INF. AND LEFT HER ROOM. ANGELIQUE WILL FOLLOW UP NEEDED.
--- NOTE | 2021-07-24 14:40 | NUR ---
---D-C PLANNING: THE PATIENT PRESENTED FOR C/O HYPERTENSION AND GENERALIZED WEAKNESS. SHE WAS IN HER PMD'S OFFICE AND WAS SENT TO ER FOR HIGH B/P AFTER GIVING HER PO CLONIDINE. B/P REMAINED ELEVATED AT 214/101. H/O DM AND HTN, GLUCOSE ON ADMISSION OF 382. STARTED ON HYDRALAZINE, ZESTRIL, LOPRESSOR, LIPITOR, SSI AND IVF'S, ADMITTED TO TELEMETRY. CM SPOKE WITH THE PATIENTS DAUGHTER DAYTON AND HER GRANDDAUGHTER ZIGGY DIAZ([phone]) BY PHONE AND CONFIRMED THE PATIENTS ADDRESS AND PHONE NUMBER. SHE LIVES IN A SINGLE STORY HOUSE WITH HER 2 DAUGHTERS AND GRANDDAUGHTER. THE PATIENTS DAUGHTER PRERNA JUST COMPLETED PAPERWORK FOR DPOA THE FAMILY HAS NOTICED THAT THE PATIENT IS HAVING SOME CONFUSION. THE PATIENT STAYS ACTIVE BY GARDENING AND HAS NO DME OR H/O HOME HEALTH, HAS NOT BEEN IN A SNF. SHE SEES HER PMD REGULARLY AND IS ASSISTED BY FAMILY WITH ALL NEEDS. PATIENT WAS A POTENTIAL DC FOR LATER TODAY HER BLOOD SUGARS AND B/P HAVE IMPROVED, P.T. REPORTS THAT THE PATIENT'S B/P BECAME ELEVATED WHEN SHE WALKED HER, PATIENT WAS GIVEN HYDRALAZINE IV PRN. DC PLAN IS FOR THE PATIENT TO RETURN HOME WITH FAMILY, CM WILL FOLLOW.
--- NOTE | 2021-07-24 15:23 | NUR ---
PT IN BED, RESTING WITH FAMILY AT BEDSIDE. V/S 137/70, 74, 18, 97.7, 97%. RESPIRATIONS EVEN AND UNLABORED. NO SIGNS OF DISTRESS NOTED. ASKED HOW SHE'S FEELING, IF SHE FEELS OK. SHE SAID "YES". NO COMPLAINTS OF PAIN. CALL LIGHT WITHIN REACH. SAFETY MEASURES IN PLACE. WILL CONTINUE TO MONITOR.
[2021-07-24 16:00] VITALS: BP 137/70
--- NOTE | 2021-07-24 17:02 | NUR ---
BLOOD GLUCOSE CHECK DONE. BS 241. SLIDING SCALE INSULIN GIVEN ORDERED. PT COMPLAINT OF BERRY 08/23. PRN PAIN MEDS GIVEN. PT TEACHINGS GIVEN. REMINDED PT OF HER SAFETY. PT VERBALIZED UNDERSTANDING. CALL LIGHT WITHIN REACH. SAFETY MEASURES IN PLACE. BED AT ITS LOWEST POSITION. WILL CONTINUE TO MONITOR.
--- NOTE | 2021-07-24 18:28 | NUR ---
PT SITTING AT BEDSIDE, EATING DINNER. NO SIGNS OF DISTRESS NOTED. RESPIRATIONS EVEN AND UNLABORED. CALL LIGHT WITHIN REACH. SAFETY MEASURES IN PLACE. SAFETY MAINTAINED DURING THE SHIFT.
--- NOTE | 2021-07-24 19:15 | NUR ---
ENDORSED PT TO WAREHOUSE PROCESSOR NURSE FOR CONTINUITY OF CARE. ALL NEEDS MET THROUGHOUT SHIFT. PT IS STABLE.
--- NOTE | 2021-07-24 19:20 | NUR ---
RECEIVED PT FROM DAY SHIFT RN FOR CONTINUITY OF CARE. PT IS AWAKE WITH FAMILY BY BEDSIDE. PT IS NOT IN ANY DISTRESS. BREATHING EVEN AND UNLABORED. PT HAS RIGHT AC 18 GAUGE WITH NS 80 ML/HR. CALL LIGHT WITHIN REACH. ALL SAFETY MEASURES TAKEN. WILL CONTINUE TO MONITOR THE PT.
[2021-07-24 20:00] VITALS: BP 163/63
[2021-07-24] MEDS: ATORVASTATIN 20 MG TAB PO SCH (20:45)
--- NOTE | 2021-07-24 20:50 | NUR ---
ALL DUE MEDS GIVEN. NO ADVERSE REACTION NOTED. WILL CONTINUE TO MONITOR THE PT.
[2021-07-25] VITALS: BP 155/69
--- NOTE | 2021-07-25 00:05 | NUR ---
PT IS SLEEPING IN BED COMFORTABLY. PT IS NOT IN ANY DISTRESS. BREATHING EVEN AND UNLABORED. IVF RUNNING PER MD ORDER. CALL LIGHT WITHIN REACH. ALL SAFETY MEASURES TAKEN. WILL CONTINUE TO MONITOR THE PT.
[2021-07-25 04:00] VITALS: BP 146/61
[2021-07-25] MEDS: INSULIN LISPRO SLIDING SCALE 100 UNITS/ML VIAL SUBQ PRN ×2 (06:30→11:32)
[2021-07-25] MEDS: BLOOD GLUCOSE MONITORING 1 DEV DEV FS SCH ×2 (06:30→11:28)
--- NOTE | 2021-07-25 06:32 | NUR ---
PT GLUCOSE LEVEL IS 202. INSULIN GIVEN PER HUMALOG SLIDING SCALE. NO COMPLAINS FROM THE PT. WILL CONTINUE TO MONITOR THE PT.
[2021-07-25 06:44] LABS: ALBUMIN 2.8 g/dL (3.4-5.0); ANION GAP 10.5 (8-16); BASOPHILS # (AUTO) 0.1 K/uL (0.00-0.22); BASOPHILS % (AUTO) 1.1 % (0.0-2.0); CARBON DIOXIDE 27.6 mmol/L (21-32); EOSINOPHILS # (AUTO) 0.7 K/uL (0-0.4); EOSINOPHILS % (AUTO) 10.5 % (0.0-4.0); HEMOGLOBIN 12.7 g/dL (12.0-16.0); LYMPHOCYTES # (AUTO) 2.1 K/uL (2.5-16.5); LYMPHOCYTES % (AUTO) 32.5 % (20.5-51.1); MAGNESIUM 1.7 mg/dL (1.8-2.4); MEAN CORPUSCULAR HEMOGLOBIN 31 pg (27-31); MEAN CORPUSCULAR HGB CONC 34 g/dL (33-37); MEAN CORPUSCULAR VOLUME 91.2 fL (80-94); MONOCYTES # (AUTO) 0.4 K/uL (0.8-1.0); MONOCYTES % (AUTO) 5.6 % (1.7-9.3); NEUTROPHILS # (AUTO) 3.3 K/uL (1.8-7.7); NEUTROPHILS % (AUTO) 50.3 % (42.2-75.2); PLATELET COUNT (AUTO) 273 K/uL (140-450); POTASSIUM 4.1 mmol/L (3.5-5.1); RED BLOOD CELL COUNT(AUTO) 4.17 MIL/uL (4.20-5.40); TOTAL BILIRUBIN 0.5 mg/dL (0.0-1.0); WHITE BLOOD COUNT (AUTO) 6.6 K/uL (4.8-10.8)
--- NOTE | 2021-07-25 07:22 | NUR ---
ENDORSED PT TO DAY SHIFT RN FOR CONTINUITY OF CARE. PT IS STABLE.
--- NOTE | 2021-07-25 07:23 | NUR ---
RECEIVED PT FROM REPORT SPECIALIST NURSE FOR CONTINUITY OF CARE. PT IS SLEEPING AT THIS TIME EASILY AROUSABLE BY VERBAL STIMULI. RESPIRATIONS EVEN AND UNLABORED AT ROOM AIR. NO SIGNS OF DISTRESS NOTED. PT A&O4, ON LIST OF FIRST JOB IDEAS. IV SITE AT [facility] G18 INFUSING NS AT 80ML/HR. SAFETY MEASURES IN PLACE. CALL LIGHT WITHIN REACH. BED LOCKED AND ITS LOWEST POSITION. WILL CONTINUE TO MONITOR.
[2021-07-25 08:00] VITALS: BP 150/75
--- NOTE | 2021-07-25 08:00 | NUR ---
Patient's Plan of Care was discussed and reviewed with SLIPCOVER CUTTER: KASEY GONZALEZ
[2021-07-25] MEDS: NACL 0.9% 1,000 ML IV SCH (08:15)
[2021-07-25] MEDS: MAGNESIUM OXIDE 400 MG TAB PO PRN (08:55)
[2021-07-25] MEDS: lisinopriL 10 MG TAB PO SCH (08:55)
[2021-07-25] MEDS: ASPIRIN 81 MG TAB.CHEW PO SCH (08:56)
[2021-07-25] MEDS: DOCUSATE SODIUM 100 MG GELCAP PO SCH (08:57)
[2021-07-25] MEDS: METOPROLOL 25 MG TAB PO SCH (08:58)
--- NOTE | 2021-07-25 09:15 | NUR ---
ADMINISTERED SCHEDULED MORNING MEDS ORDERED. PT TEACHING ABOUT MEDS DONE. PT VERBALIZED UNDERSTANDING. PT COMPLAINT OF CHEST PAIN. PT IS LYING IN BED, SHOWS FACIAL GRIMACING AND MOANING. INFORMED MD. AWAITING FOR RESPONSE. FAMILY AT BEDSIDE, CALL LIGHT WITHIN REACH. SAFETY MEASURES IN PLACE. WILL CONTINUE TO MONITOR.
[2021-07-25] MEDS ORDERED: traMADol 50 MG TAB PO PRN (10:35)
--- NOTE | 2021-07-25 10:35 | NUR ---
MD ORDERED TRAMADOL 50MG PO Q4PRN AND HYDRALAZINE 50MG PO TID. MD AWARE OF PTS MORPHINE ALLERGY.
--- NOTE | 2021-07-25 11:00 | NUR ---
ASSISTED PT TO THE REST ROOM. PT ABLE TO AMBULATE. WHEN BACK TO BED AND IV NS PLACED BACK, NURSE NOTICED IT'S LEAKING. REMOVED IV CATHETER IS INTACT. WILL ATTEMPT TO PLACE A NEW ONE. PT LEFT IN BED WITH FAMILY AT BED SIDE. CALL LIGHT WITHIN REACH. SAFETY MEASURES IN PLACE.
--- NOTE | 2021-07-25 11:23 | NUR ---
PRN PAIN MED GIVEN FOR PAIN 08/23. BS CHECK DONE. BS 263. SLIDING SCALE INSULIN GIVEN. PT TOLERATED WELL. WILL CONTINUE TO MONITOR. LEFT AT WITH FAMILY MEMBERS AT BEDSIDE. SAFETY MEASURES IN PLACE.
--- NOTE | 2021-07-25 12:30 | NUR ---
HYDRALAZINE GIVEN. PT TEACHING ABOUT THE MED DONE. PT VERBALIZED UNDERSTANDING. INFORMED PT ABOUT THE DISCHARGE ORDER. FAMILY MEMBER AT BEDSIDE. WILL PREPARE DISCHARGE PAPERS.
[2021-07-25] MEDS ORDERED: hydrALAZINE 25 MG TAB PO SCH (13:00)
[2021-07-25 13:20] VITALS: BP 141/63
[2021-07-25] MEDS ORDERED: HYDR-1098 PO (13:32)
--- NOTE | 2021-07-25 13:50 | NUR ---
PT DC HOME. PT LEFT WITH FAMILY MEMBERS. NURSE WHEELED PT OUT TO THE FRONT LOBBY WITH FAMILY MEMBERS. DISCHARGE PAPER DISCUSSED WITH THE PT. PT VERBALIZED UNDERSTANDING. REMOVED ID WRIST BAND. ALL BELONGINGS TAKEN UPON DISCHARGED. PT IS STABLE.
== END 2021-07-25 14:00 | disposition home or self-care (01) | DRG 638 ==
LOC: MED 12:41 → MTU 18:36
PROVIDERS: ADMIT Hospitalist; ATTEND Hospitalist
DX: E11.65 Type 2 diabetes mellitus with hyperglycemia (principal); E44.0 Moderate protein-calorie malnutrition; I10 Essential (primary) hypertension; M06.9 Rheumatoid arthritis, unspecified; Z20.822 Contact with and (suspected) exposure to COVID-19; R53.1 Weakness; E86.0 Dehydration; Z68.28 Body mass index [BMI] 28.0-28.9, adult; Z88.5 Allergy status to narcotic agent; Z79.899 Other long term (current) drug therapy
CPT/HCPCS: 96360; 96372; 99285; G0378; 36415; 71045; 80053; 81003; 82948; 83735; 83880; 84484; 85025; 87081; 93005; 97116; 97530; J0360; J7030

== ENCOUNTER 2021-08-01 17:58 | Emergency (ER) | payer OTHER ==
[~2021-08-01] VITALS: Ht 157.5 cm; Wt 61.2 kg
[~2021-08-01 17:58] MED LIST changes: +HYDR-1098 PO
[2021-08-01 18:15] VITALS: BP 191/93
[2021-08-01 20:05] LABS: BASOPHILS # (AUTO) 0.1 K/uL (0.00-0.22); BASOPHILS % (AUTO) 1.2 % (0.0-2.0); EOSINOPHILS # (AUTO) 0.7 K/uL (0-0.4); EOSINOPHILS % (AUTO) 10.5 % (0.0-4.0); HEMOGLOBIN 12.5 g/dL (12.0-16.0); LYMPHOCYTES # (AUTO) 2.1 K/uL (2.5-16.5); LYMPHOCYTES % (AUTO) 34.2 % (20.5-51.1); MEAN CORPUSCULAR HEMOGLOBIN 31 pg (27-31); MEAN CORPUSCULAR HGB CONC 34 g/dL (33-37); MEAN CORPUSCULAR VOLUME 90.9 fL (80-94); MONOCYTES # (AUTO) 0.5 K/uL (0.8-1.0); MONOCYTES % (AUTO) 7.9 % (1.7-9.3); NEUTROPHILS # (AUTO) 2.9 K/uL (1.8-7.7); NEUTROPHILS % (AUTO) 46.2 % (42.2-75.2); PLATELET COUNT (AUTO) 244 K/uL (140-450); RED BLOOD CELL COUNT(AUTO) 4.07 MIL/uL (4.20-5.40); RED CELL DISTRIBUTION WIDTH 13.2 % (11.6-13.7); WHITE BLOOD COUNT (AUTO) 6.2 K/uL (4.8-10.8)
[2021-08-01 20:21] LABS: PROTHROMBIN TIME 9.9 secs (10.8-13.4)
[2021-08-01 20:26] LABS: ALBUMIN 3.1 g/dL (3.4-5.0); ANION GAP 8.9 (8-16); CARBON DIOXIDE 29.8 mmol/L (21-32); CREATININE 1.4 mg/dL (0.6-1.3); POTASSIUM 4.7 mmol/L (3.5-5.1); TOTAL BILIRUBIN 0.3 mg/dL (0.0-1.0)
[2021-08-01 22:30] VITALS: BP 174/63
== END 2021-08-01 22:30 | disposition home or self-care (01) ==
LOC: MED 17:58
DX: I10 Essential (primary) hypertension (principal); R07.89 Other chest pain; E11.9 Type 2 diabetes mellitus without complications; Z79.899 Other long term (current) drug therapy; Z79.891 Long term (current) use of opiate analgesic; Z79.1 Long term (current) use of non-steroidal anti-inflammatories (NSAID); Z79.82 Long term (current) use of aspirin; Z88.5 Allergy status to narcotic agent
CPT/HCPCS: 36415; 71045; 80053; 83880; 84484; 85025; 85610; 85730; 93005; 99285

== ENCOUNTER 2022-03-24 11:36 | Observation (INO) | payer OTHER ==
[~2022-03-24] VITALS: Ht 157.5 cm; Wt 68.0 kg
[~2022-03-24 11:36] MED LIST changes: -ACET-8386 PO; +ACET-8905 PO; +HYDR-4420 PO; +LISI20TA29 PO; +METO50TA99 PO
[2022-03-24 11:49] VITALS: BP 215/78
[2022-03-24 12:21] LABS: BASOPHILS # (AUTO) 0.1 K/uL (0.00-0.22); BASOPHILS % (AUTO) 1.4 % (0.0-2.0); EOSINOPHILS # (AUTO) 0.3 K/uL (0-0.4); EOSINOPHILS % (AUTO) 4.2 % (0.0-4.0); HEMATOCRIT 40.6 % (36-48); HEMOGLOBIN 14.2 g/dL (12.0-16.0); LYMPHOCYTES % (AUTO) 27.8 % (20.5-51.1); MEAN CORPUSCULAR HEMOGLOBIN 31 pg (27-31); MEAN CORPUSCULAR HGB CONC 35 g/dL (33-37); MEAN CORPUSCULAR VOLUME 89.5 fL (80-94); MONOCYTES # (AUTO) 0.4 K/uL (0.8-1.0); NEUTROPHILS # (AUTO) 4.4 K/uL (1.8-7.7); NEUTROPHILS % (AUTO) 60.6 % (42.2-75.2); PLATELET COUNT (AUTO) 284 K/uL (140-450); RED BLOOD CELL COUNT(AUTO) 4.53 MIL/uL (4.20-5.40); RED CELL DISTRIBUTION WIDTH 13.1 % (11.6-13.7); WHITE BLOOD COUNT (AUTO) 7.3 K/uL (4.8-10.8)
[2022-03-24] MEDS ORDERED: hydrALAZINE 20 MG/ML VIAL IM ONE (12:35)
[2022-03-24 12:43] LABS: ANION GAP 13.9 (8-16); CARBON DIOXIDE 29.7 mmol/L (21-32); CREATININE 1.2 mg/dL (0.6-1.3); POTASSIUM 4.6 mmol/L (3.5-5.1); TOTAL BILIRUBIN 0.5 mg/dL (0.0-1.0)
--- NOTE | 2022-03-24 12:45 | NUR ---
PT BACK FROM RAD, W/C ASSISTED TO ER BED 10
--- NOTE | 2022-03-24 12:58 | NUR ---
PT RECEIVED, CARE ASSUMED. CONNECTED TO TELE MONITOR: SR 80. BP 185/103. PT DENIES ANY PAIN. WILL MEDICATE FOR HIGH BLOOD PRESSURE
[2022-03-24] MEDS ORDERED: hydrALAZINE 20 MG/ML VIAL IVP ONE (13:10)
--- NOTE | 2022-03-24 13:49 | NUR ---
PT BACK FROM CT. PT C/O LEFT ARM PAIN. CONNECTED TO TELE MONITOR. NOTED V/S, WILL CONTINUE TO MONITOR
[2022-03-24] MEDS ORDERED: KETOROLAC 30 MG/ML VIAL IVP ONE (16:45)
[2022-03-24] MEDS ORDERED: LORazepam 2 MG/ML VIAL IVP PRN (16:55)
[2022-03-24] MEDS ORDERED: ONDANSETRON 4 MG/2 ML VIAL IVP PRN (16:55)
[2022-03-24] MEDS ORDERED: ACETAMINOPHEN 325 MG TAB PO PRN (16:55)
[2022-03-24] MEDS ORDERED: MORPHINE SULFATE 2 MG/ML SYR IVP PRN (16:55)
[2022-03-24] MEDS ORDERED: hydrALAZINE 20 MG/ML VIAL IVP PRN (16:55)
[2022-03-24] MEDS ORDERED: hydrALAZINE 25 MG TAB PO SCH (17:00)
[2022-03-24] MEDS ORDERED: hydrALAZINE 10 MG TAB ONE (18:08)
--- NOTE | 2022-03-24 19:27 | NUR ---
ASSUMED CARE OF PT AT THIS TIME. PT A&OX4, RR EVEN AND UNLABORED. PT UPDATED ON POC WITH FULL RETURNED VERBAL UNDERSTANDING. DENIES ANY PAIN OR NEEDS AT THIS TIME. VSS
--- NOTE | 2022-03-24 20:00 | NUR ---
PT SITTING UP IN BED EATING DINNER AT THIS TIME.
[2022-03-24] MEDS ORDERED: METOPROLOL 50 MG TAB PO SCH (21:00)
[2022-03-24] MEDS ORDERED: ATORVASTATIN 20 MG TAB PO SCH (21:00)
--- NOTE | 2022-03-24 21:00 | NUR ---
SPOKE WITH GRANDSON AND CARLOS. PT WANTING TO GO HOME. WILLING TO SIGN AMA. DAUGHTER AND WILL COME AND GET PT. WILL CONTACT ADMITTING DOCTOR.
[2022-03-24 21:27] VITALS: BP 124/64
--- NOTE | 2022-03-24 21:27 | NUR ---
Patient does not wish to proceed with medical care recommended by EVIN. Patient AND DAUGHTER given information related to possible complications, up to and including , which could occur as a result of leaving hospital at this time. Patient AND DAUGHTER verbalizes understanding of risks involved leaving against medical advice. Patient has signed AMA form.
[2022-03-25] MEDS ORDERED: DICLOFENAC 25 MG TABEC PO SCH (09:00)
[2022-03-25] MEDS ORDERED: ASPIRIN 81 MG TAB.CHEW PO SCH (09:00)
[2022-03-25] MEDS ORDERED: lisinopriL 20 MG TAB PO SCH ×2 (09:00)
[2022-03-25] MEDS ORDERED: ISOSORBIDE MONONITRATE 30 MG TABER PO SCH (09:00)
--- NOTE | 2022-03-25 09:11 | NUR ---
PATIENT HAS BEEN SCREENED AND CATEGORIZED MODERATE NUTRITION RISK. PATIENT WILL BE SEEN WITHIN 3-5 DAYS OF ADMISSION. REVIEWED BY ALIE PEREZ RD
[2022-03-25] MEDS ORDERED: glipiZIDE 10 MG TAB PO SCH (11:30)
[2022-03-25] MEDS ORDERED: metFORMIN 500 MG TAB PO SCH (17:01)
== END 2022-03-24 21:27 | disposition left against medical advice (07) ==
LOC: MED 11:36 → MTU 16:52
PROVIDERS: ADMIT Internal Medicine; ATTEND Internal Medicine
DX: I16.0 Hypertensive urgency (principal); I10 Essential (primary) hypertension; R07.89 Other chest pain; E87.1 Hypo-osmolality and hyponatremia; E87.8 Other disorders of electrolyte and fluid balance, not elsewhere classified; E11.65 Type 2 diabetes mellitus with hyperglycemia; E88.09 Other disorders of plasma-protein metabolism, not elsewhere classified; K59.00 Constipation, unspecified; M47.816 Spondylosis without myelopathy or radiculopathy, lumbar region; F41.9 Anxiety disorder, unspecified; Z79.899 Other long term (current) drug therapy; I16.1 Hypertensive emergency
CPT/HCPCS: 36415; 71045; 71275; 74174; 80053; 83880; 84484; 85025; 96372; 96374; 96375; 99285; G0378; J0360; J1885; Q9967

== ENCOUNTER 2022-11-07 11:32 | Emergency (ER) | payer OTHER ==
[~2022-11-07] VITALS: Ht 154.9 cm; Wt 63.5 kg
[2022-11-07 11:42] VITALS: BP 195/83; PULSE 57; RESP 18; TEMP 97.8; O2SAT 98
[2022-11-07 12:19] LABS: BASOPHILS # (AUTO) 0.1 K/uL (0.00-0.22); BASOPHILS % (AUTO) 1.2 % (0.0-2.0); EOSINOPHILS # (AUTO) 0.2 K/uL (0-0.4); EOSINOPHILS % (AUTO) 3.1 % (0.0-4.0); HEMATOCRIT 40.8 % (36-48); LYMPHOCYTES # (AUTO) 2.7 K/uL (2.5-16.5); LYMPHOCYTES % (AUTO) 37.1 % (20.5-51.1); MEAN CORPUSCULAR HEMOGLOBIN 31 pg (27-31); MEAN CORPUSCULAR HGB CONC 34 g/dL (33-37); MEAN CORPUSCULAR VOLUME 90.5 fL (80-94); MONOCYTES # (AUTO) 0.4 K/uL (0.8-1.0); NEUTROPHILS # (AUTO) 3.8 K/uL (1.8-7.7); NEUTROPHILS % (AUTO) 52.6 % (42.2-75.2); PLATELET COUNT (AUTO) 278 K/uL (140-450); RED BLOOD CELL COUNT(AUTO) 4.51 MIL/uL (4.20-5.40); RED CELL DISTRIBUTION WIDTH 12.9 % (11.6-13.7); WHITE BLOOD COUNT (AUTO) 7.3 K/uL (4.8-10.8)
[2022-11-07 12:41] LABS: ANION GAP 9.2 (8-16); CARBON DIOXIDE 32.4 mmol/L (21-32); CREATININE 1.2 mg/dL (0.6-1.3); POTASSIUM 4.6 mmol/L (3.5-5.1); TOTAL BILIRUBIN 0.5 mg/dL (0.0-1.0); TOTAL PROTEIN, SERUM 6.9 g/dL (6.4-8.2)
[2022-11-07] MEDS ORDERED: POLYETHYLENE GLYCOL 17 GM/PKT PO ONE (14:45)
[2022-11-07] MEDS ORDERED: MORPHINE SULFATE 4 MG/ML SYR IM ONE (15:00)
[2022-11-07] MEDS ORDERED: fentaNYL citrate 0.05 MG/ML VIAL IVP ONE (15:05)
[2022-11-07] MEDS ORDERED: DOCU-299 PO (16:08)
[2022-11-07] MEDS ORDERED: MIRABULK PO (16:09)
[2022-11-07 16:19] VITALS: BP 170/68; PULSE 60; RESP 20; TEMP 97.8; O2SAT 98
== END 2022-11-07 16:18 | disposition home or self-care (01) ==
LOC: MED 11:32
DX: K59.00 Constipation, unspecified (principal); E11.9 Type 2 diabetes mellitus without complications; I10 Essential (primary) hypertension; Z79.899 Other long term (current) drug therapy; Z88.5 Allergy status to narcotic agent; Z98.890 Other specified postprocedural states
CPT/HCPCS: 36415; 74176; 80053; 83690; 85025; 96374; 99285; J3010

== ENCOUNTER 2023-01-27 10:20 | Emergency (ER) | payer OTHER ==
[~2023-01-27] VITALS: Ht 154.9 cm; Wt 69.5 kg
[~2023-01-27 10:20] MED LIST changes: +DOCU-299 PO; +MIRABULK PO
[2023-01-27 10:39] VITALS: BP 97/52; PULSE 57; RESP 18; TEMP 97.7; O2SAT 98
[2023-01-27] MEDS ORDERED: PROM118S5 PO (11:52)
[2023-01-27] MEDS ORDERED: IBUP-1842 PO (11:59)
[2023-01-27 12:10] VITALS: BP 149/57; PULSE 57; RESP 18; TEMP 97.7; O2SAT 98
== END 2023-01-27 12:10 | disposition home or self-care (01) ==
LOC: MED 10:20
DX: B34.9 Viral infection, unspecified (principal); I10 Essential (primary) hypertension; E11.9 Type 2 diabetes mellitus without complications; Z79.4 Long term (current) use of insulin; Z79.899 Other long term (current) drug therapy; Z88.5 Allergy status to narcotic agent
CPT/HCPCS: 71045; 99283

== ENCOUNTER 2023-07-12 10:58 | Emergency (ER) | payer OTHER ==
[~2023-07-12] VITALS: Ht 154.9 cm; Wt 63.5 kg
[~2023-07-12 10:58] MED LIST changes: -HYDR-4420 PO; +HYDR-5856 PO; +IBUP-1842 PO; +PROM118S5 PO
[2023-07-12 11:05] VITALS: BP 229/112; PULSE 78; RESP 18; TEMP 97.8; O2SAT 99
[2023-07-12 11:45] VITALS: O2SAT 99
[2023-07-12 11:48] LABS: BASOPHILS # (AUTO) 0.1 K/uL (0.00-0.22); BASOPHILS % (AUTO) 1.1 % (0.0-2.0); EOSINOPHILS # (AUTO) 0.3 K/uL (0-0.4); EOSINOPHILS % (AUTO) 4.5 % (0.0-4.0); HEMOGLOBIN 13.8 g/dL (12.0-16.0); LYMPHOCYTES # (AUTO) 2.3 K/uL (2.5-16.5); LYMPHOCYTES % (AUTO) 30.8 % (20.5-51.1); MEAN CORPUSCULAR HEMOGLOBIN 31 pg (27-31); MEAN CORPUSCULAR HGB CONC 35 g/dL (33-37); MEAN CORPUSCULAR VOLUME 88.4 fL (80-94); MONOCYTES # (AUTO) 0.4 K/uL (0.8-1.0); MONOCYTES % (AUTO) 5.4 % (1.7-9.3); NEUTROPHILS # (AUTO) 4.3 K/uL (1.8-7.7); NEUTROPHILS % (AUTO) 58.2 % (42.2-75.2); PLATELET COUNT (AUTO) 290 K/uL (140-450); RED BLOOD CELL COUNT(AUTO) 4.41 MIL/uL (4.20-5.40); RED CELL DISTRIBUTION WIDTH 13.2 % (11.6-13.7); WHITE BLOOD COUNT (AUTO) 7.3 K/uL (4.8-10.8)
[2023-07-12] MEDS: LABETALOL 20 MG/4 ML VIAL IVP ONE (11:49)
[2023-07-12 11:56] LABS: ANION GAP 12.2 (8-16); CALCIUM 9.5 mg/dL (8.5-10.1); CHLORIDE 96 mmol/L (98-107); CREATININE 1.6 mg/dL (0.6-1.3); GLUCOSE 347 mg/dL (74-106); POTASSIUM 4.2 mmol/L (3.5-5.1); SODIUM SERUM 134 mmol/L (136-145); UREA NITROGEN, BLOOD 32 mg/dL (7-18)
[2023-07-12 12:03] LABS: ALANINE AMINOTRANSFERASE 13 U/L (12-78); ALBUMIN 3.3 g/dL (3.4-5.0); ALKALINE PHOSPHATASE 62 U/L (50-136); ASPARTATE AMINOTRANSFERASE 13 U/L (15-37); BILIRUBIN,DIRECT 0.1 mg/dL (0.0-0.3); LIPASE 46 U/L (16-77); TOTAL BILIRUBIN 0.6 mg/dL (0.0-1.0)
[2023-07-12 12:15] LABS: INR 0.94 (0.8-1.2); PARTIAL THROMBOPLASTIN TIME 23.9 secs (22-35.6); PROTHROMBIN TIME 9.9 secs (10.8-13.4)
[2023-07-12] MEDS: amLODIPine 5 MG TAB PO ONE (12:30)
[2023-07-12] MEDS: ACETAMINOPHEN EXTRA STRENGTH 500 MG TAB PO ONE (13:41)
[2023-07-12] MEDS ORDERED: MIRABULK PO (14:48)
[2023-07-12 14:58] VITALS: BP 182/82; PULSE 66; RESP 16; TEMP 98; O2SAT 99
== END 2023-07-12 14:58 | disposition home or self-care (01) ==
LOC: MED 10:58
DX: D35.01 Benign neoplasm of right adrenal gland (principal); R51.9 Headache, unspecified; K59.00 Constipation, unspecified; E11.9 Type 2 diabetes mellitus without complications; I10 Essential (primary) hypertension; Z79.84 Long term (current) use of oral hypoglycemic drugs; Z79.1 Long term (current) use of non-steroidal anti-inflammatories (NSAID); Z79.82 Long term (current) use of aspirin; Z79.899 Other long term (current) drug therapy; Z88.5 Allergy status to narcotic agent
CPT/HCPCS: 36415; 70450; 71045; 74176; 80048; 80076; 82948; 83690; 84484; 85025; 85610; 85730; 93005; 96374; 99285; J3490

== ENCOUNTER 2023-07-27 18:08 | Emergency (ER) | payer OTHER ==
[~2023-07-27] VITALS: Ht 160 cm; Wt 61.2 kg
[2023-07-27 18:48] VITALS: BP 223/90; PULSE 88; RESP 16; TEMP 98.3; O2SAT 99
[2023-07-27] MEDS: ENALAPRILAT 2.5 MG/2 ML VIAL IVP ONE (19:12)
[2023-07-27] MEDS: LABETALOL 20 MG/4 ML VIAL IVP ONE (20:51)
[2023-07-27 22:37] VITALS: BP 159/61; PULSE 72; RESP 16; TEMP 98.3; O2SAT 96
== END 2023-07-27 22:31 | disposition home or self-care (01) ==
LOC: MED 18:08
DX: I10 Essential (primary) hypertension (principal); E11.9 Type 2 diabetes mellitus without complications; Z88.5 Allergy status to narcotic agent; Z79.4 Long term (current) use of insulin; Z79.899 Other long term (current) drug therapy
CPT/HCPCS: 96374; 96375; 99284; J3490